=== PATIENT | male | born 1975 | race Caucasian/White ===

== ENCOUNTER 2025-01-10 14:48 | Emergency (ER) | payer OTHER ==
[~2025-01-10] VITALS: Ht 180.3 cm; Wt 80.0 kg
[2025-01-10 14:59] VITALS: O2SAT 98
[2025-01-10] MEDS: FAMOTIDINE 20MG/2ML VIAL IV ONE (15:59)
[2025-01-10] MEDS: SODIUM CHLORIDE 0.9% 1,000 ML IV ONE (16:00)
[2025-01-10] MEDS: ONDANSETRON HCL 4MG/2ML INJ IV ONE (16:00)
[2025-01-10 16:05] LABS: HEMATOCRIT. 44.5 % (42.0-52.0); HEMOGLOBIN. 14.8 g/dL (14.0-18.0); MEAN CORPUSCULAR HEMOGLOBIN 31.4 pg (28.0-32.0); MEAN CORPUSCULAR HGB CONC 33.2 g/dL (31.0-37.0); MEAN CORPUSCULAR VOLUME 94.6 fL (80.0-94.0); MEAN PLATELET VOLUME 8.3 fl (7.4-10.4); PLATELET 129 x1000/uL (130-400); RED BLOOD CELL COUNT 4.71 mill/uL (4.7-6.1); RED CELL DISTRIBUTION WIDTH 12.7 % (11.6-14.6); WHITE BLOOD COUNT 11.2 x1000/uL (4.5-11.0)
[2025-01-10 16:06] LABS: DIFFERENTIAL COMMENT 1
[2025-01-10 16:20] LABS: CHLORIDE 108 mEq/L (98-107); POTASSIUM 4.5 mEq/L (3.5-5.1); SODIUM 141 mEq/L (136-145)
[2025-01-10 16:21] LABS: CARBON DIOXIDE 25 mEq/L (21-32)
[2025-01-10 16:22] LABS: CALCIUM 9.8 mg/dL (8.7-10.4)
[2025-01-10 16:24] LABS: PLATELET ESTIMATE DECREASED
[2025-01-10 16:26] LABS: CREATININE 0.8 mg/dL (0.6-1.3); GLUCOSE 226 mg/dL (70-105)
[2025-01-10 16:27] LABS: UREA NITROGEN BLOOD 19 mg/dL (9-23)
[2025-01-10 16:28] LABS: ALANINE AMINOTRANSFERASE 48 IU/L (10-49); ALBUMIN 4.4 g/dL (3.2-4.8); ASPARTATE AMINOTRANSFERASE 23 IU/L (<34); BILIRUBIN DIRECT 0.1 mg/dL (<=3.0); TROPONIN I HIGH SENSITIVITY < 4 ng/L (3.0-53)
[2025-01-10 16:29] LABS: BILIRUBIN TOTAL 0.5 mg/dL (0.1-1.0)
[2025-01-10 17:50] VITALS: BP 109/48; PULSE 77; RESP 16; TEMP 36.8; O2SAT 99
[2025-01-10] MEDS ORDERED: DOCUSATE SODIUM 100MG CAPSULE PO PRN (18:00)
[2025-01-10] MEDS ORDERED: CLONIDINE 0.1MG TABLET PO PRN (18:00)
[2025-01-10] MEDS ORDERED: DEXTROSE 50% WATER 50ML SYRINGE IV PRN (18:00)
[2025-01-10] MEDS ORDERED: IPRATROPIUM/ALBUTEROL 0.5-3(2.5)MG/3ML NEB HHN PRN (18:00)
[2025-01-10] MEDS ORDERED: LORAZEPAM 0.5MG TABLET PO PRN (18:00)
[2025-01-10] MEDS ORDERED: ACETAMINOPHEN 325MG TABLET PO PRN ×2 (18:00)
[2025-01-10] MEDS ORDERED: GUAIFENESIN 200MG/10ML SUGAR FREE UDC PO PRN (18:00)
[2025-01-10] MEDS ORDERED: ONDANSETRON HCL 4MG/2ML INJ IV PRN (18:00)
[2025-01-10] MEDS ORDERED: INSULIN LISPRO 100 UNITS/ML SUBCUT SCH (18:20)
[2025-01-10] MEDS: METOCLOPRAMIDE HCL 10MG/2ML VIAL IV NR (18:34)
[2025-01-10] MEDS: SODIUM CHLORIDE 0.9% 1,000 ML IV SCH (18:35)
[2025-01-10] MEDS: LORAZEPAM 2MG/ML UD SYRINGE IV NR (18:35)
[2025-01-10] MEDS ORDERED: BLOOD SUGAR DIAGNOSTIC STRIP TEST SCH (21:00)
[2025-01-10] MEDS ORDERED: MECLIZINE 25MG TABLET PO SCH (21:00)
[2025-01-10] MEDS ORDERED: INSULIN GLARGINE 100 UNITS/ML SUBCUT SCH (22:00)
== END 2025-01-10 19:50 | disposition short-term general hospital (02) ==
LOC: ER 14:48 → EDBEDREQSVC 17:26 → EDBEDREQTM 17:26 → EDBEDREQ 17:26 → CANBEDREQ 17:40 → ER 19:50
DX: R11.2 Nausea with vomiting, unspecified (principal); E11.65 Type 2 diabetes mellitus with hyperglycemia; Z79.4 Long term (current) use of insulin; Z79.84 Long term (current) use of oral hypoglycemic drugs
CPT/HCPCS: 80076; 80048; 82962; 83036; 83690; 85025; 84484; 36415; 70450; 96361; 96374; 96375; 99285; J3490; J2765; J2405; J7030; Z7610 ×2